=== PATIENT | female | born 2000 | race Caucasian/White ===

== ENCOUNTER 2019-01-13 10:54 | Emergency (ER) | payer OTHER ==
[~2019-01-13] VITALS: Ht 182.9 cm; Wt 65.8 kg
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
--- NOTE | 2019-01-13 11:17 | NUR ---
ERMD at bedside for MSE
--- NOTE | 2019-01-13 11:22 | NUR ---
pt taken to radiology for CT scan / xray
[2019-01-13] MEDS ORDERED: ACETAMINOPHEN ES 500 MG TABLET ONE (11:27)
[2019-01-13] MEDS ORDERED: ACETAMINOPHEN ES 500 MG TABLET PO ONE (11:30)
--- NOTE | 2019-01-13 11:30 | NUR ---
pt back from CT scan
--- NOTE | 2019-01-13 12:09 | NUR ---
Patient discharged to home in stable conditon. Written and verbal after care instructions given. Patient verbalizes understanding of instructions. pt ambulating with steady gait
[2019-01-13 12:10] VITALS: BP 115/68
== END 2019-01-13 12:09 | disposition home or self-care (01) ==
LOC: ER 10:54
DX: R51 Headache (principal); M54.2 Cervicalgia; M79.641 Pain in right hand; V49.9XXA Car occupant (driver) (passenger) injured in unspecified traffic accident, initial encounter; Y93.89 Activity, other specified; Y92.89 Other specified places as the place of occurrence of the external cause; Y99.8 Other external cause status
CPT/HCPCS: 70450; 72125; 73130; A4663; A9150